=== PATIENT | female | born 1970 | race Caucasian/White ===

== ENCOUNTER → 2017-03-06 | Day surgery (SDC) | payer OTHER ==
[~2017-03-06] MED LIST: AMOX875 PO; ISOSULFAN BLUE 50 MG/5 ML VIAL SQ ONE; KETOROLAC TROMETHAMINE 30 MG/ML (IVP) VIAL IV PUSH ONE; LACTATED RINGER'S 1000 ML INJ 1,000 ML ONE; LIDOCAINE 1%/EPINEPHrine 1:100,000 SOLN 20 ML VIAL ONE; MEDR4PAK3 PO; ONDANSETRON HCL 4 MG/2 ML VIAL IV PUSH ONE; PROPOFOL 200 MG/20 ML AMP IV ONE; ceFAZolin 2 GM PREMIX 50 ML ONE
--- NOTE | 2017-03-06 17:00 | TN ---
cc: ALEX LUCAS M.D., ALVARO CHEW, BOON Y. M.D. DATE OF SURGERY 03/06/2017 PREOPERATIVE DIAGNOSIS Ductal carcinoma in situ left breast. POSTOPERATIVE DIAGNOSIS 1. Ductal carcinoma in situ left breast. 2. 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 PROCEDURE Injection blue dye left breast, needle-localized left breast lumpectomy with left axillary sentinel lymph node biopsy and axillary sampling. Implantation of Biozorb left breast reconstruction with local tissue flaps. SURGEON Dr. Alex Lucas STEEL ESTIMATOR Raisa Fajardo, [facility] ANESTHESIA General. 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 She had undergone mammography, ultrasonography and image guided left breast biopsy which demonstrated findings of ductal carcinoma in situ, low grade ER SC positive. Plans were made for breast conservation therapy. INTRAOPERATIVE FINDINGS Successful removal of area of concern seen on imaging. The closest margin clinically was inferior and an inferior margin was sent separately. A 2 x 2 Biozorb tissue marker was placed within the lumpectomy cavity to allow for focus to radiation on the lumpectomy site. DESCRIPTION OF PROCEDURE IN DETAIL The patient is identified as Thalia Corrales taken to operating room, placed in supine position following image guided needle localization of the left breast. Sequential compression devices were placed on bilateral lower extremities. Following induction of adequate general anesthesia, the patient's left breast, chest and axilla were prepped and draped in usual sterile fashion with Betadine. A time-out procedure was performed. Following completion of time-out procedure to everyone's satisfaction within the room, 5 mL of isosulfan blue dye was injected in the peritumoral and subareolar position. The navigator probe was used to identify increased uptake in the axilla although no increased uptake was identified within the axilla, in the supraclavicular or internal mammary lymph node basins. Proposed axillary incision was made with a marking pen, infiltrated with local anesthetic and incision carried out with scalpel. Hemostasis was controlled with electrocautery and dissection continued posteriorly through the subcutaneous fatty tissue into the axillary fat. Two palpable lymph nodes within the axillary fat were excised. There was no increased uptake and no blue dye. Following removal of these two nodes, blue dye within the lymphatic was identified and led to a small blue stained node which was removed as the sentinel lymph node. There was no radionuclide uptake. No further blue dye was identified within the axilla. No further palpable axillary lymph nodes were identified. The wound was irrigated copiously with saline. Small bleeding points were controlled with electrocautery. Once the wound was assured to be dry several ccs of local anesthetic was placed within the axilla and the axilla was closed in layers with 3-0 Vicryl and 4-0 Monocryl. Attention was then turned to the breast lumpectomy. The proposed periareolar incision was made with a marking pen, infiltrated local anesthetic. The incision was carried out with scalpel and bleeding controlled with electrocautery. Dissection continued posteriorly and medially towards the localization needle using the lighted retractor in a hidden scar lumpectomy fashion. Skin, subcutaneous tissue and breast tissue were superior to the dissection plane and the localization needle was identified within the breast tissue. It was divided at the level of skin, brought into the surgical wound and a generous portion of tissue was removed around the localization needle. Care was taken not to dislodge or move the needle. Specimen was removed in its entirety, marked with a short stitch superior anterior and a long stitch lateral posterior. Evaluation of the specimen demonstrated the closest margin clinically was inferior. Specimen was sent for specimen mammography and the localization clip was noted to be within the specimen although at the superficial edge of the specimen. Additional inferior margin was taken using electrocautery, removing another 0.5 cm to 1.0 cm margin inferiorly. This was removed in its entirety and marked with a suture on new inferior margin and passed off the field for pathologic evaluation. The wound was then irrigated copiously with saline. Following completion of the partial mastectomy / lumpectomy attention was turned to placement of the BioZorb marker. The 2 x 2 cm marker was determined to be most suitable for implantation. The cavity was hemostatic. A total of four 3-0 PDS sutures were placed at the 12 and 6 o'clock, 3 and 9 o'clock and this held the bioabsorbable implant in the cavity. Each suture was placed in a different aspect of the tissue flaps that reconstructed the surgical defect. An additional fifth suture was then placed in the superficial to the BioZorb marker to maintain its position. Further closure of the wound was done with 3-0 Vicryl and 4-0 Monocryl. Dressings were applied with Mastisol one-half inch brown Steri-Strips, gauze and Tegaderm over the breast and a gauze with a Telfa pad over the axilla. The patient tolerated procedure well without apparent complication. Sponge, needle and instrument counts were correct at the end of the case. MD NAM Castellanos/NORM /3:51 PM /4:41 PM
== END | disposition home or self-care (01) ==
LOC: ESDC 09:35
PROVIDERS: ATTEND Surgery Trauma Surgery
DX: D05.12 Intraductal carcinoma in situ of left breast (principal); N64.89 Other specified disorders of breast
CPT/HCPCS: 00400; 01610; 19125; 19285; 38525; 38792; 88307; J0690; J1885; J2405; J3010; J7120; Q9968; A4648

== ENCOUNTER → 2017-03-25 | Day surgery (SDC) | payer OTHER ==
[~2017-03-25] MED LIST changes: -ISOSULFAN BLUE 50 MG/5 ML VIAL SQ ONE
--- NOTE | 2017-03-25 10:27 | TN ---
cc: ALEX LUCAS M.D. DATE OF SURGERY: 03/25/2017 PREOPERATIVE DIAGNOSIS Ductal carcinoma in situ left breast with positive lateral margin following lumpectomy. POSTOPERATIVE DIAGNOSIS Ductal carcinoma in situ left breast with positive lateral margin following lumpectomy. PROCEDURE Re-excision lumpectomy left breast lateral margin. SURGEON Dr. Alex Luacs [employer] [facility] E Parson, [place] III ANESTHESIA General. INDICATIONS A very pleasant 47-year-old woman who was recently diagnosed with ductal carcinoma in situ. She has undergone lumpectomy and sentinel lymph node biopsy. She was found to have a positive lateral margin of the left breast and plans were made for re-excision of the lateral margin. INTRAOPERATIVE FINDINGS Successful excision of additional breast tissue on the lateral margin. A suture was placed on the new lateral margin as well as the superior margin. Specimen was sent to pathology for permanent section. ESTIMATED BLOOD LOSS Minimal. DESCRIPTION OF PROCEDURE IN DETAIL The patient was identified as Thalia Corrales, taken to the operating room and placed in supine position. Sequential compression devices were placed on bilateral lower extremities. Following induction of adequate general anesthesia the left breast was prepped and draped in the usual sterile fashion with Betadine. A timeout procedure was performed. Following completion of the timeout procedure to everyone's satisfaction within the room, the previous incision along the medial areolar margin was re-opened with a scalpel after instillation of local anesthetic. Previous sutures were removed. The lumpectomy cavity was discovered and a small seroma was suctioned out with a suction device. The BioZorb device was encountered and it helped to define the previous lumpectomy cavity. A generous lateral margin was excised from surrounding breast tissue using electrocautery from superior to lateral to inferior. The tissue was removed in its entirety, marked with a long stitch in the new lateral margin, a short stitch on the superior margin. The wound was irrigated with saline. Small bleeding points were controlled with electrocautery. Once the wound was assured to be dry the BioZorb was resutured to the lateral margin with a 3-0 PDS suture. 3-0 PDS was used to approximate the anterior breast tissue over the BioZorb tissue marker as well. 3-0 Vicryl was then used to close the open space in the breast tissue, then in the deep dermis and subcutaneous tissue. The skin was approximated with running 4-0 Monocryl subcuticular suture. Dressings were applied with Mastisol, half-inch brown Steri-Strips, gauze and Tegaderm. The patient tolerated the procedure without apparent complication. Sponge, needle and instrument counts were correct at the end of the case. MD NAM Castellanos/JAVIER /10:13 AM /10:24 AM
== END | disposition home or self-care (01) ==
LOC: ESDC 07:46
PROVIDERS: ATTEND Surgery Trauma Surgery
DX: D05.12 Intraductal carcinoma in situ of left breast (principal)
CPT/HCPCS: 00400; 19301; 88307; J0690; J1885; J2405; J3010; J7120